=== PATIENT | male | born 1985 | race Hispanic/Latino ===

== ENCOUNTER 2023-05-13 14:36 | Emergency (ER) | payer BC, OTHER ==
[~2023-05-13] VITALS: Ht 172.7 cm; Wt 163.3 kg
[2023-05-13 15:57] LABS: HEMATOCRIT 42.2 % (42-54); MEAN CORPUSCULAR HEMOGLOBIN 30.4 pg (27.0-33.0); MEAN CORPUSCULAR HGB CONC 34.6 g/dL (32.0-36.0); MEAN CORPUSCULAR VOLUME 87.7 fL (79-99); PLATELET COUNT (AUTO) 253 K/uL (130-400); RED BLOOD CELL COUNT(AUTO) 4.81 MIL/uL (4.50-6.20); WHITE BLOOD COUNT (AUTO) 12.2 K/uL (4.8-10.8)
[2023-05-13 16:04] LABS: BASOPHILS # (AUTO) 0.08 K/uL (0.00-0.20); BASOPHILS % (AUTO) 0.7 % (0.0-5.0); EOSINOPHILS % (AUTO) 0.8 % (0.0-8.0); IMMATURE GRANULOCYTE ABSOLUTE 0.08 K/uL (0-1); LYMPHOCYTES # (AUTO) 2.8 K/uL (1.0-4.8); MONOCYTES # (AUTO) 0.7 K/uL (0.1-1.0); MONOCYTES % (AUTO) 5.9 % (3.0-13.0); NEUTROPHILS # (AUTO) 8.3 K/uL (1.8-7.7); NEUTROPHILS % (AUTO) 68.9 % (40.0-77.0)
[2023-05-13 16:11] LABS: CREATININE 0.9 mg/dL (0.5-1.5); POTASSIUM 4.6 mmol/L (3.5-5.1)
[2023-05-13 16:16] LABS: BILIRUBIN,TOTAL 0.3 mg/dL (0.2-1.0)
[2023-05-13 16:25] VITALS: BP 170/68; PULSE 78; RESP 18; O2SAT 99
[2023-05-13] MEDS ORDERED: PANT40TA54 PO (17:14)
== END 2023-05-13 17:24 | disposition home or self-care (01) ==
LOC: EDH 14:36
DX: K21.9 Gastro-esophageal reflux disease without esophagitis (principal)
CPT/HCPCS: 36415; 80053; 83690; 84484; 85025; 93005